=== PATIENT | male | born 1970 | race Caucasian/White ===

== ENCOUNTER 2017-06-23 14:09 | Emergency (ER) | payer MEDICAID, OTHER ==
[~2017-06-23] VITALS: Ht 182.9 cm; Wt 117.9 kg
--- NOTE | 2017-06-23 14:30 | NUR ---
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 PATIENT WRAPPED SITE WITH KERLIX. NO OTHER INJURY NOTED. VSS
--- NOTE | 2017-06-23 14:31 | NUR ---
MD MENDIOLA AT BEDSIDE
--- NOTE | 2017-06-23 14:36 | NUR ---
CONTENT SPECIALIST AT BEDSIDE
[2017-06-23 15:26] VITALS: BP 112/70
--- NOTE | 2017-06-23 15:27 | NUR ---
Patient discharged to home in stable condition. Written and verbal after care instructions given. Patient verbalizes understanding of instruction.
== END 2017-06-23 15:28 | disposition home or self-care (01) ==
LOC: ER 14:10
DX: S92.501A Displaced unspecified fracture of right lesser toe(s), initial encounter for closed fracture (principal); F17.210 Nicotine dependence, cigarettes, uncomplicated; Z98.890 Other specified postprocedural states; W01.0XXA Fall on same level from slipping, tripping and stumbling without subsequent striking against object, initial encounter; Y93.89 Activity, other specified; Y92.89 Other specified places as the place of occurrence of the external cause; Y99.9 Unspecified external cause status
CPT/HCPCS: 73630; 99284; A4606; Z7610

== ENCOUNTER 2018-10-13 05:05 | Emergency (ER) | payer OTHER ==
[~2018-10-13] VITALS: Ht 182.9 cm; Wt 81.6 kg
[2018-10-13 05:41] VITALS: BP 133/90
[2018-10-13] MEDS ORDERED: TDAP [DIPH/PERTUSSIS/TET] 0.5 ML VIAL IM ONE ×2 (06:21→06:30)
== END 2018-10-13 06:31 | disposition home or self-care (01) ==
LOC: ER 05:06
DX: S61.012A Laceration without foreign body of left thumb without damage to nail, initial encounter (principal); F10.10 Alcohol abuse, uncomplicated; F17.210 Nicotine dependence, cigarettes, uncomplicated; Y90.9 Presence of alcohol in blood, level not specified; Z60.2 Problems related to living alone; W26.0XXA Contact with knife, initial encounter; Y93.89 Activity, other specified; Y92.000 Kitchen of unspecified non-institutional (private) residence as the place of occurrence of the external cause; Y99.8 Other external cause status
CPT/HCPCS: 90715; A6402

== ENCOUNTER 2018-12-09 08:54 | Emergency (ER) | payer OTHER ==
[~2018-12-09] VITALS: Ht 182.9 cm; Wt 100.3 kg
--- NOTE | 2018-12-09 09:04 | NUR ---
PT BIBS FOR MIGRAIN H/A; PT [id number], PT ON MONITOR, VSS, NAD NOTED, PENDING MD WAYNE
[2018-12-09] MEDS ORDERED: diphenhydrAMINE HCL 50 MG/ML VIAL ONE (09:20)
[2018-12-09] MEDS ORDERED: KETOROLAC TROMETHAMINE INJ 60 MG/2 ML VIAL IM ONE ×2 (09:20→09:30)
[2018-12-09] MEDS ORDERED: diphenhydrAMINE HCL 50 MG/ML VIAL IM ONE (09:30)
--- NOTE | 2018-12-09 09:40 | NUR ---
DOWNTIME: TORADOL AND BENADRYL GIVEN IM
--- NOTE | 2018-12-09 11:17 | NUR ---
Patient discharged to home in stable condition. Written and verbal after care instructions given. Patient verbalizes understanding of instruction.
[2018-12-09 12:17] VITALS: BP 121/33
== END 2018-12-09 11:17 | disposition home or self-care (01) ==
LOC: ER 08:55
DX: G43.909 Migraine, unspecified, not intractable, without status migrainosus (principal); F17.210 Nicotine dependence, cigarettes, uncomplicated
CPT/HCPCS: 36415; G0480; J1200; J1885

== ENCOUNTER 2019-04-27 22:32 | Emergency (ER) | payer OTHER ==
[~2019-04-27] VITALS: Ht 182.9 cm; Wt 95.3 kg
--- NOTE | 2019-04-27 22:47 | NUR ---
BIBS FOR C/O CP RADIATING TO L ARMX 2 DAYS WORSE TODAY. MONITOR APPLIED, VSS. WILL CONT TO MONITOR ,
[2019-04-27] MEDS ORDERED: IBUPROFEN 400 MG TABLET ONE (22:53)
[2019-04-27] MEDS ORDERED: IBUPROFEN 400 MG TABLET PO ONE (23:00)
[2019-04-27 23:01] LABS: BASOPHILS # (AUTO) 0.1 /CMM (0.0-0.2); BASOPHILS % (AUTO) 1.1 % (0.0-2.0); EOSINOPHILS % (AUTO) 0.9 % (0.0-6.0); HEMATOCRIT 45 % (39-51); HEMOGLOBIN 15.3 g/dL (13.5-17.5); LYMPHOCYTES # (AUTO) 3.2 /CMM (0.8-4.8); MEAN CORPUSCULAR HGB CONC 34 g/dl (31.0-36.0); MEAN CORPUSCULAR VOLUME 99 fL (80-96); MONOCYTES # (AUTO) 0.5 /CMM (0.1-1.30); MONOCYTES % (AUTO) 7.3 % (2.0-12.0); NEUTROPHILS # (AUTO) 3.5 /CMM (1.8-8.9); NEUTROPHILS % (AUTO) 47.7 % (43.0-81.0); PLATELET COUNT (AUTO) 321 /CMM (150-450); RED BLOOD CELL COUNT(AUTO) 4.49 MIL/uL (4.5-6.0); WHITE BLOOD COUNT (AUTO) 7.4 K/uL (4.3-11.0)
[2019-04-27 23:05] LABS: CALCIUM, SERUM 9.2 mg/dL (8.5-10.1); CARBON DIOXIDE 23 mmol/L (21-32); CHLORIDE 107 mmol/L (98-107); CREATININE 0.7 mg/dL (0.6-1.3); GLUCOSE 105 mg/dL (74-106); POTASSIUM 3.8 mmol/L (3.5-5.1); SODIUM SERUM 141 mmol/L (136-145); UREA NITROGEN, BLOOD 19 mg/dL (7-18)
[2019-04-27 23:47] LABS: D-DIMER 0.22 mg/L(FEU (0.17-0.50)
[2019-04-28] MEDS ORDERED: DEXAMETHASONE SOD PHOSPHATE 4 MG/ML VIAL IM ONE
[2019-04-28] MEDS ORDERED: DEXAMETHASONE SOD PHOSPHATE 10 MG/ML VIAL ONE (00:01)
[2019-04-28 00:13] VITALS: BP 116/78
--- NOTE | 2019-04-28 00:13 | NUR ---
Patient discharged to home in stable condition. Written and verbal after care instructions given. Patient verbalizes understanding of instruction.
== END 2019-04-28 00:14 | disposition home or self-care (01) ==
LOC: ER 22:38
DX: M54.12 Radiculopathy, cervical region (principal); M62.838 Other muscle spasm; F10.10 Alcohol abuse, uncomplicated; F17.210 Nicotine dependence, cigarettes, uncomplicated; Y90.9 Presence of alcohol in blood, level not specified
CPT/HCPCS: 36415; 71045; 80048; 84484; 85025; 85378; 85730; 93005; 96372; 99284; J1100

== ENCOUNTER 2019-05-18 18:57 | Emergency (ER) | payer OTHER ==
[~2019-05-18] VITALS: Ht 190.5 cm; Wt 99.8 kg
--- NOTE | 2019-05-18 19:15 | NUR ---
BIB FRIEND FOR R OHARA MULTIPLE ABRASIONS, PAIN AND EDEMA S/P FALL FROM ESCALATOR @ [facility] 2 HOURS AGO. DENIED HITTING HIS HEAD.
[2019-05-18] MEDS ORDERED: MORPHINE SULFATE INJ 10 MG/ML DISP.SYRIN IM ONE (19:30)
[2019-05-18] MEDS ORDERED: ONDANSETRON 4 MG TAB.RAPDIS SL ONE (19:30)
[2019-05-18] MEDS ORDERED: ONDANSETRON 4 MG TAB.RAPDIS ONE (19:34)
[2019-05-18] MEDS ORDERED: MORPHINE SULFATE INJ 4 MG/ML DISP.SYRIN ONE (19:34)
--- NOTE | 2019-05-18 19:40 | NUR ---
CATALOGUE COMPILER AT THE BED SIDE
[2019-05-18] MEDS ORDERED: TDAP [DIPH/PERTUSSIS/TET] 0.5 ML VIAL IM ONE ×2 (19:42→20:00)
--- NOTE | 2019-05-18 21:36 | NUR ---
WOUND CARE ON ABRASIONS DONE ORDERED PER MD R ANKLE WAS WRAPPED W/ SHARON BANDAGE AND SPLINT AND CRATCHES WERE PROVIDED. PT'S TEACHING REGARDING HOW TO USE THE CRUTCHES AND WT BEARING WAS DONE W/ UNDERSTANDING AND DEMONSTRATIONS.
--- NOTE | 2019-05-18 21:38 | NUR ---
Patient discharged to home in stable condition. Rx and Written and verbal after care instructions given. Patient verbalizes understanding of instruction.
[2019-05-18 21:41] VITALS: BP 118/73
== END 2019-05-18 21:43 | disposition home or self-care (01) ==
LOC: ER 19:00
DX: S93.491A Sprain of other ligament of right ankle, initial encounter (principal); S16.1XXA Strain of muscle, fascia and tendon at neck level, initial encounter; S39.012A Strain of muscle, fascia and tendon of lower back, initial encounter; S80.11XA Contusion of right lower leg, initial encounter; S40.011A Contusion of right shoulder, initial encounter; S09.8XXA Other specified injuries of head, initial encounter; R51 Headache; F10.10 Alcohol abuse, uncomplicated; F17.210 Nicotine dependence, cigarettes, uncomplicated; Y90.9 Presence of alcohol in blood, level not specified; Z60.2 Problems related to living alone; W10.8XXA Fall (on) (from) other stairs and steps, initial encounter; Y93.89 Activity, other specified; Y92.89 Other specified places as the place of occurrence of the external cause; Y99.8 Other external cause status
CPT/HCPCS: 70450; 72100; 72125; 73030; 73564; 73590; 73630; 90471; 90715; 96372; 99284; A6403; J2270; L0172; Q0162

== ENCOUNTER 2019-08-25 13:02 | Emergency (ER) | payer OTHER ==
[~2019-08-25] VITALS: Ht 182.9 cm; Wt 104.3 kg
[2019-08-25 13:09] VITALS: BP 118/81
--- NOTE | 2019-08-25 14:06 | NUR ---
Patient discharged to home in stable condition. Written and verbal after care instructions given. Patient verbalizes understanding of instruction.
== END 2019-08-25 14:28 | disposition home or self-care (01) ==
LOC: ER 13:02
DX: J20.9 Acute bronchitis, unspecified (principal); F17.210 Nicotine dependence, cigarettes, uncomplicated
CPT/HCPCS: 71045-TC

== ENCOUNTER 2021-01-27 01:31 | Emergency (ER) | payer OTHER ==
[~2021-01-27] VITALS: Ht 188 cm; Wt 99.8 kg
--- NOTE | 2021-01-27 01:35 | NUR ---
Pt bibself c/o migraine headache x2 weeks. Pt aaox4 breathing evenly and unlabored. Pt states that he has tried taking ecedrine, but felt no relief. Pt skin warm, dry, and intact. left hand 20g initated. Pt attached to monitor and pox. Pt given blanket and call light within reach
[2021-01-27] MEDS ORDERED: SUMATRIPTAN SUCCINATE 6 MG/0.5 ML VIAL SQ ONE ×2 (01:47→02:00)
[2021-01-27] MEDS ORDERED: METOCLOPRAMIDE HCL 10 MG/2 ML VIAL ONE (01:47)
[2021-01-27] MEDS ORDERED: METOCLOPRAMIDE HCL 10 MG/2 ML VIAL IV ONE (02:00)
[2021-01-27] MEDS ORDERED: IV NS 0.9% 1,000 ML BAG IV ONE (02:00)
--- NOTE | 2021-01-27 02:15 | NUR ---
pt resting with eyes closed. easily arousable.
--- NOTE | 2021-01-27 02:15 | NUR ---
pt resting with eyes closed
--- NOTE | 2021-01-27 02:15 | NUR ---
Neeta read in [facility] - 01/27/21 at 0247 by NOEMI pt resting with eyes closed
[2021-01-27] MEDS ORDERED: SUMA100T16 PO (02:47)
--- NOTE | 2021-01-27 02:50 | NUR ---
Patient discharged to home in stable condition. Written and verbal after care instructions given. Patient verbalizes understanding of instruction. IV removed. Catheter intact and site benign. Pressure and 4x4 applied to site. No bleeding noted.Pt ambulatory with a steady gait
[2021-01-27 02:55] VITALS: BP 134/75
== END 2021-01-27 02:50 | disposition home or self-care (01) ==
LOC: ER 01:33
DX: G43.909 Migraine, unspecified, not intractable, without status migrainosus (principal); F17.210 Nicotine dependence, cigarettes, uncomplicated; Z79.899 Other long term (current) drug therapy
CPT/HCPCS: 96361; 96372; 96374; 99284; J2765; J3030; J7030 ×2

== ENCOUNTER 2022-04-28 15:53 | Emergency (ER) | payer OTHER ==
[~2022-04-28] VITALS: Ht 182.9 cm; Wt 99.8 kg
[~2022-04-28 15:53] MED LIST: SUMA100T16 PO
--- NOTE | 2022-04-28 16:00 | NUR ---
TO ER BED 1, BIBFRIEND C/O MID CHEST HEAVINESS RAD TO L NECK AND JAW. ON AND OFF x 2DAYS ALSO C/O SOB, AMBULATORY, AAOX3, BREATHING EVEN AND NON LABORED, CONNECTED TO MONITOR, AWAITING MD ORDERS
[2022-04-28 16:26] LABS: BASOPHILS # (AUTO) 0.1 K/uL (0.0-0.2); BASOPHILS % (AUTO) 1.3 % (0.0-2.0); EOSINOPHILS % (AUTO) 1.1 % (0.0-6.0); HEMATOCRIT 40 % (39-51); HEMOGLOBIN 13.9 g/dL (13.5-17.5); LYMPHOCYTES # (AUTO) 3.1 K/uL (0.8-4.8); LYMPHOCYTES % (AUTO) 38.9 % (20.0-44.0); MEAN CORPUSCULAR HGB CONC 35 g/dl (31.0-36.0); MEAN CORPUSCULAR VOLUME 98 fL (80-96); MONOCYTES # (AUTO) 0.7 K/uL (0.1-1.30); MONOCYTES % (AUTO) 8.7 % (2.0-12.0); PLATELET COUNT (AUTO) 277 K/uL (150-450); RED BLOOD CELL COUNT(AUTO) 4.09 MIL/uL (4.5-6.0); WHITE BLOOD COUNT (AUTO) 8.1 K/uL (4.3-11.0)
[2022-04-28 16:44] LABS: CARBON DIOXIDE 28 mmol/L (21-32); CHLORIDE 104 mmol/L (98-107); CREATININE 0.7 mg/dL (0.6-1.3); GLUCOSE 125 mg/dL (74-106); POTASSIUM 3.6 mmol/L (3.5-5.1); SODIUM SERUM 139 mmol/L (136-145); UREA NITROGEN, BLOOD 16 mg/dL (7-18)
--- NOTE | 2022-04-28 19:32 | NUR ---
RECEIVED PATIENT AAOX4. PATIENT HAS NO CP AT THE MOMENT. WITH PERIPHERAL LINE ON RIGHT AC G18. WILL CONTINUE TO MONITOR PATIENT.
--- NOTE | 2022-04-28 20:35 | NUR ---
IV CANNULA REMOVED.
--- NOTE | 2022-04-28 20:35 | NUR ---
Patient discharged to home in stable condition. Written and verbal after care instructions given. Patient verbalizes understanding of instruction.
[2022-04-28 20:36] VITALS: BP 132/89
== END 2022-04-28 20:37 | disposition home or self-care (01) ==
LOC: ER 15:59
DX: R07.89 Other chest pain (principal); G43.909 Migraine, unspecified, not intractable, without status migrainosus; Z87.442 Personal history of urinary calculi; F17.200 Nicotine dependence, unspecified, uncomplicated
CPT/HCPCS: 36415; 71045-TC; 80048-TC; 84484-TC; 85025-TC; 85378-TC

== ENCOUNTER 2024-05-24 10:36 | Emergency (ER) | payer OTHER ==
[~2024-05-24] VITALS: Ht 182.9 cm; Wt 90.7 kg
[2024-05-24 11:01] VITALS: TEMP 98.3
[2024-05-24 11:32] LABS: BASOPHILS # (AUTO) 0.1 K/uL (0.0-0.2); BASOPHILS % (AUTO) 0.8 % (0.0-2.0); EOSINOPHILS # (AUTO) 0.1 K/uL (0.0-0.7); EOSINOPHILS % (AUTO) 1.3 % (0.0-6.0); HEMATOCRIT 45 % (39-51); HEMOGLOBIN 15.4 g/dL (13.5-17.5); LYMPHOCYTES # (AUTO) 2.5 K/uL (0.8-4.8); LYMPHOCYTES % (AUTO) 34.8 % (20.0-44.0); MEAN CORPUSCULAR HEMOGLOBIN 34 PG (26.0-33.0); MEAN CORPUSCULAR HGB CONC 35 g/dl (31.0-36.0); MEAN CORPUSCULAR VOLUME 97 fL (80-96); MONOCYTES # (AUTO) 0.6 K/uL (0.1-1.30); MONOCYTES % (AUTO) 7.8 % (2.0-12.0); NEUTROPHILS % (AUTO) 55.3 % (43.0-81.0); PLATELET COUNT (AUTO) 305 K/uL (150-450); RED BLOOD CELL COUNT(AUTO) 4.59 MIL/uL (4.5-6.0); RED CELL DISTRIBUTION WIDTH 13.1 % (11.5-15.0); WHITE BLOOD COUNT (AUTO) 7.2 K/uL (4.3-11.0)
[2024-05-24 11:41] LABS: CALCIUM, SERUM 9.3 mg/dL (8.5-10.1); CARBON DIOXIDE 30 mmol/L (21-32); CHLORIDE 103 mmol/L (98-107); CREATININE 0.9 mg/dL (0.6-1.3); GLUCOSE 105 mg/dL (74-106); POTASSIUM 4.6 mmol/L (3.5-5.1); SODIUM SERUM 141 mmol/L (136-145); UREA NITROGEN, BLOOD 16 mg/dL (7-18)
[2024-05-24 11:47] LABS: ALANINE AMINOTRANSFERASE 53 U/L (12-78); ALBUMIN 3.4 g/dL (3.4-5.0); ALKALINE PHOSPHATASE 70 U/L (46-116); ASPARTATE AMINOTRANSFERASE 23 U/L (15-37); BILIRUBIN,DIRECT 0.1 mg/dL (0.0-0.2); BILIRUBIN,TOTAL 0.6 mg/dL (0.2-1.0); TOTAL PROTEIN, SERUM 7.7 g/dL (6.4-8.2)
[2024-05-24 12:24] VITALS: BP 134/82; O2SAT 98
== END 2024-05-24 12:24 | disposition home or self-care (01) ==
LOC: ER 10:49
DX: R07.89 Other chest pain (principal); G43.909 Migraine, unspecified, not intractable, without status migrainosus; F17.200 Nicotine dependence, unspecified, uncomplicated; Z87.442 Personal history of urinary calculi
CPT/HCPCS: 36415; 71045-TC; 80048-TC; 80076-TC; 83690-TC; 84484-TC; 85025-TC

== ENCOUNTER 2024-06-08 13:24 | Emergency (ER) | payer OTHER ==
[~2024-06-08] VITALS: Ht 172.7 cm; Wt 115.7 kg
[2024-06-08] MEDS ORDERED: KETOROLAC TROMETHAMINE INJ 30 MG/ML VIAL ONE (14:32)
[2024-06-08] MEDS ORDERED: ACETAMINOPHEN 325 MG TABLET ONE (14:33)
[2024-06-08] MEDS ORDERED: BACLOFEN (10 MG) 10 MG TABLET ONE (14:33)
[2024-06-08] MEDS: BACLOFEN (10 MG) 10 MG TABLET PO ONE (14:38)
[2024-06-08] MEDS: ACETAMINOPHEN 325 MG TABLET PO ONE (14:38)
[2024-06-08] MEDS: KETOROLAC TROMETHAMINE INJ 60 MG/2 ML VIAL IM ONE (14:38)
[2024-06-08] MEDS: HYDROMORPHONE 1 MG/1 ML DISP.SYRIN IM ONE (16:00)
[2024-06-08] MEDS ORDERED: HYDROMORPHONE 1 MG/1 ML DISP.SYRIN ONE (16:02)
[2024-06-08] MEDS ORDERED: BACL10TA PO (16:45)
[2024-06-08] MEDS ORDERED: HYDR-3980 PO (16:45)
[2024-06-08] MEDS ORDERED: KETO10TA2 PO (16:45)
[2024-06-08 17:02] VITALS: BP 138/84; O2SAT 97
== END 2024-06-08 17:03 | disposition home or self-care (01) ==
LOC: ER 13:25
DX: G89.29 Other chronic pain (principal); M54.41 Lumbago with sciatica, right side; M51.36 Other intervertebral disc degeneration, lumbar region; G43.909 Migraine, unspecified, not intractable, without status migrainosus; F17.210 Nicotine dependence, cigarettes, uncomplicated; Z87.440 Personal history of urinary (tract) infections
CPT/HCPCS: 99285; 72131; 96372 ×2; J1885; J1170